=== PATIENT | female | born 1995 | race Caucasian/White ===

== ENCOUNTER 2017-11-14 11:39 | Emergency (ER) | payer OTHER ==
[~2017-11-14] VITALS: Ht 157.5 cm; Wt 62.1 kg
[2017-11-14] MEDS ORDERED: PRENATAL + DHA1 EAC1 (12:05)
[2017-11-14] MEDS ORDERED: ZYRTEC10 M3 (12:05)
== END 2017-11-14 16:41 | disposition home or self-care (01) ==
LOC: ER 11:39
DX: O21.0 Mild hyperemesis gravidarum (principal); Z34.01 Encounter for supervision of normal first pregnancy, first trimester

== ENCOUNTER 2018-02-18 10:31 | Outpatient (CLI) | payer OTHER ==
[~2018-02-18 10:31] MED LIST: PRENATAL + DHA1 EAC1; ZYRTEC10 M3
== END 2018-02-19 15:13 | disposition home or self-care (01) ==
LOC: OBS/DEL 10:31
DX: O60.02 Preterm labor without delivery, second trimester (principal); O26.92 Pregnancy related conditions, unspecified, second trimester; R10.2 Pelvic and perineal pain; Z34.02 Encounter for supervision of normal first pregnancy, second trimester

== ENCOUNTER 2018-05-19 09:57 | Emergency (ER) | payer OTHER ==
[~2018-05-19] VITALS: Ht 157.5 cm; Wt 77.6 kg
[2018-05-19] MEDS ORDERED: SINGULAIR10 MG PO (10:18)
== END 2018-05-19 17:31 | disposition home or self-care (01) ==
LOC: ER 09:57
DX: O26.893 Other specified pregnancy related conditions, third trimester (principal); J11.1 Influenza due to unidentified influenza virus with other respiratory manifestations